=== PATIENT | female | born 2005 | race African-American/Black ===

== ENCOUNTER 2025-05-17 06:48 | Emergency (ER) | payer OTHER ==
[~2025-05-17] VITALS: Ht 167.6 cm; Wt 61.0 kg
[~2025-05-17 06:48] MED LIST: CEPH500T MT
[2025-05-17 07:01] VITALS: O2SAT 100
[2025-05-17] MEDS: AZITHROMYCIN 500 MG TABLET PO STA (07:51)
[2025-05-17] MEDS: CEFTRIAXONE SODIUM 500MG VIAL IM ONE (07:51)
[2025-05-17 07:52] VITALS: BP 107/80; PULSE 75; RESP 16; TEMP 36.9; O2SAT 100
== END 2025-05-17 07:58 | disposition home or self-care (01) ==
LOC: ER 06:48
DX: Z20.2 Contact with and (suspected) exposure to infections with a predominantly sexual mode of transmission (principal); Z79.899 Other long term (current) drug therapy
CPT/HCPCS: 96372; 99283; J0696; Z7610

== ENCOUNTER 2025-10-18 15:38 | Emergency (ER) | payer OTHER ==
[~2025-10-18] VITALS: Ht 170.2 cm; Wt 69.0 kg
[2025-10-18 15:44] VITALS: BP 124/84; TEMP 36.9; O2SAT 100
[2025-10-18 15:50] VITALS: PULSE 78; RESP 12; O2SAT 100
== END 2025-10-18 17:30 | disposition left against medical advice (07) ==
LOC: ER 15:38
DX: K08.89 Other specified disorders of teeth and supporting structures (principal)
CPT/HCPCS: 99281